=== PATIENT | female | born 1985 | race Two or more races ===

== ENCOUNTER 2019-09-14 14:00 | Inpatient (IN) | payer OTHER ==
[~2019-09-14] VITALS: Ht 170.2 cm; Wt 69.4 kg
[2019-09-30] MEDS ORDERED: PRENATAL TABLE1 EACH PO (05:06)
[2019-09-30] MEDS ORDERED: PROFERRIN-FORT1 EACH PO (05:07)
== END 2019-10-03 11:09 | disposition home or self-care (01) | DRG 807 ==
LOC: SURG-SUITE 09-30 04:01 → LDR 09-30 04:01 → SURG-SUITE 09-30 18:28 → OB/GYN 10-07 14:00
PROVIDERS: ADMIT Obstetrics & Gynecology
PROC: 10E0XZZ Delivery of Products of Conception, External Approach (ICD-10-PCS; principal; 2019-09-30)
PROC: 0KQM0ZZ Repair Perineum Muscle, Open Approach (ICD-10-PCS; 2019-09-30)
PROC: 3E033VJ Introduction of Other Hormone into Peripheral Vein, Percutaneous Approach (ICD-10-PCS; 2019-09-30)
PROC: 10907ZC Drainage of Amniotic Fluid, Therapeutic from Products of Conception, Via Natural or Artificial Opening (ICD-10-PCS; 2019-09-30)
PROC: 4A1HXCZ Monitoring of Products of Conception, Cardiac Rate, External Approach (ICD-10-PCS; 2019-09-30)
DX: O70.1 Second degree perineal laceration during delivery (principal); Z37.0 Single live birth; Z3A.39 39 weeks gestation of pregnancy

== ENCOUNTER 2022-04-21 13:00 | Inpatient (IN) | payer OTHER ==
[~2022-04-21] VITALS: Ht 170.2 cm; Wt 73.0 kg
[~2022-04-21 13:00] MED LIST: PRENATAL TABLE1 EACH PO; PROFERRIN-FORT1 EACH PO
[2022-04-23] MEDS ORDERED: PRENATAL TABLE1 EAC3 PO (10:53)
[2022-04-23] MEDS ORDERED: PROMETRIUM200 MG (14:52)
[2022-04-23] MEDS ORDERED: CONCEPT OB CAP1 EACH (14:52)
== END 2022-04-25 13:14 | disposition home or self-care (01) | DRG 807 ==
LOC: OB/GYN 04-23 08:55 → LDR 04-23 08:55 → OB/GYN 04-23 15:52
PROVIDERS: ADMIT Obstetrics & Gynecology; ATTEND Obstetrics & Gynecology
PROC: 10E0XZZ Delivery of Products of Conception, External Approach (ICD-10-PCS; principal; 2022-04-23)
PROC: 0KQM0ZZ Repair Perineum Muscle, Open Approach (ICD-10-PCS; 2022-04-23)
PROC: 4A1HXCZ Monitoring of Products of Conception, Cardiac Rate, External Approach (ICD-10-PCS; 2022-04-23)
DX: O70.1 Second degree perineal laceration during delivery (principal); Z37.0 Single live birth; Z3A.38 38 weeks gestation of pregnancy; Z20.822 Contact with and (suspected) exposure to COVID-19